=== PATIENT | female | born 1955 | race Caucasian/White ===

== ENCOUNTER → 2016-02-09 | Outpatient (CLI) | payer OTHER ==
[2016-02-09 13:24] LABS: Blood Urea Nitrogen 9 mg/dL (7-17); Non-African American GFR(MDRD) >60 (>60 ml/min/1.73 sqM)
--- NOTE | 2016-02-09 14:06 | CT ---
EXAMINATION TYPE: CT abdomen wo/w con DATE OF EXAM: 02/09/2016 1:54 PM COMPARISON: NONE HISTORY: Renal cyst CT DLP: 1107 mGycm Automated exposure control for dose reduction was used. TECHNIQUE: Helical acquisition of images was performed from the lung bases through the pelvis. CONTRAST: Performed with Oral Contrast and with IV Contrast, patient injected with 100 ml mL of Omnipaque 300. FINDINGS: LUNG BASES: No significant abnormality is appreciated. LIVER/GB: Previous gallbladder surgery noted. Liver has a normal appearance.. PANCREAS: No significant abnormality is seen. SPLEEN: No significant abnormality is seen. ADRENALS: No significant abnormality is seen. KIDNEYS: Renal cortical tissue is preserved bilaterally. Left kidney: There is mild prominence of the left collecting system. There is a 2 mm upper pole left renal calculus. Visualized renal pelvis and ureter demonstrate normal caliber. 4 mm hypodense lesion involving the left kidney mid renal cortex slightly anterior is too small to characterize but likely related to a tiny simple cyst. Right kidney: There is a 1 mm lower pole right renal calculus. No hydronephrosis. There is a hypodens e lesion involving the posterior mid to upper pole cortex of the right kidney. Measures 8 Hounsfield units. Findings compatible with simple cyst. OSSEOUS STRUCTURES: No significant abnormality is seen. BOWEL: No significant abnormality is seen. IMPRESSION: BILATERAL NEPHROLITHIASIS WITH MILD PROMINENCE OF THE LEFT COLLECTING SYSTEM COMPATIBLE WITH MILD PEL VOCALIECTASIS VERSUS EXTRARENAL PELVIS. SIMPLE CYST RIGHT KIDNEY MEASURING 8 HOUNSFIELD UNITS AND 1.2 CM.
== END | disposition home or self-care (01) ==
LOC: RADCTMAIN 12:44
PROVIDERS: ATTEND Urology
DX: N28.1 Cyst of kidney, acquired (principal); N20.0 Calculus of kidney
CPT/HCPCS: 82565; 84520; 74170; 36415; Q9967

== ENCOUNTER 2018-03-30 13:46 | Observation (INO) | payer OTHER ==
[2018-03-30] MEDS ORDERED: SODIUM CHLORIDE 0.9% 1,000 ML IV ONE (14:37)
--- NOTE | 2018-03-30 14:37 | ED ---
General Adult HPI - General Chief complaint: Abdominal Pain Stated complaint: Abd Pain Time Seen by Provider: 03/30/18 13:50 Source: patient, EMS, RN notes reviewed Mode of arrival: EMS Limitations: no limitations - History of Present Illness Initial comments: This is a 62-year-old female who presents to the emergency department complaining of left flank pain. Patient was seen at [facility] first and they transferred the patient to our facility because of an infected kidney stone which is causing perinephric stranding and severe hydronephrosis. Patient states she still having left-sided pain but she is much more comfortable after she has received medication. Patient also received Rocephin done at the other facility. Patient states his pain is been ongoing for a couple days but the pain got extremely bad about 1:00 in the morning. Patient denies any fever chills. Patient denies any vomiting per patient denies any diarrhea. Patient's white count at the other facility was 23,000 - Related Data Allergies Allergy/AdvReac Type Severity Reaction Status Date / Time acetaminophen [From Lortab] Allergy Nausea Verified 03/30/18 14:18 codeine Allergy Nausea Verified 03/30/18 14:18 diclofenac [From Voltaren] Allergy Nausea Verified 03/30/18 14:18 hydrocodone [From Lortab] Allergy Nausea Verified 03/30/18 14:18 Penicillins Allergy Rash/Hives Verified 03/30/18 14:18 Review of Systems ROS Statement: Those systems with pertinent positive or pertinent negative responses have been documented in the HPI. ROS Other: All systems not noted in ROS Statement are negative. Past Medical History Past Medical History: Fibromyalgia, Thyroid Disorder Additional Past Medical History / Comment(s): IBS History of Any Multi-Drug Resistant Organisms: None Reported Past Surgical History: Bladder Surgery, Cholecystectomy, Hysterectomy, Orthopedic Surgery Additional Past Surgical History / Comment(s): bunionectomy, achilles tendon repair, oopherectomy, several ovarian cysts removed, bladder suspension Past Psychological History: Anxiety, Depression Smoking Status: Current every day smoker Past Alcohol Use History: None Reported Past Drug Use History: None Reported General Exam - General Exam Comments Initial Comments: GENERAL: Patient is well-developed and well-nourished. Patient is nontoxic and well- hydrated and is in distress. ENT: Neck is soft and supple. No significant lymphadenopathy is noted. Neck has full range of motion without eliciting any pain. EYES: The sclera were anicteric and conjunctiva were pink and moist. Extraocular movements were intact and pupils were equal round and reactive to light. Eyelids were unremarkable. PULMONARY: Unlabored respirations. Good breath sounds bilaterally. No audible rales rhonchi or wheezing was noted. CARDIOVASCULAR: There is a regular rate and rhythm without any murmurs gallops or rubs. ABDOMEN: Soft and nontender with normal bowel sounds. No palpable organomegaly was noted. There is no palpable pulsatile mass. SKIN: Skin is clear with no lesions or rashes and otherwise unremarkable. NEUROLOGIC: Patient is alert and oriented x3. Cranial nerves II through XII are grossly intact. Motor and sensory are also intact. Normal speech, volume and content. Symmetrical smile. MUSCULOSKELETAL: Normal extremities with adequate strength and full range of motion. LYMPHATICS: No significant lymphadenopathy is noted PSYCHIATRIC: Normal psychiatric evaluation. Limitations: no limitations Course Vital Signs 03/30/18 13:49 Temperature 98.8 F Pulse Rate 104 H Respiratory 20 Rate Blood Pressure 123/64 O2 Sat by Pulse 95 Oximetry Medical Decision Making - Medical Decision Making I spoke with Dr. Noe Liu agreed to admit the patient admitted the patient continued antibiotics and pain medication throughout the night. I wrote admitting orders. Disposition Clinical Impression: Hydronephrosis with renal and ureteral calculous obstruction Disposition: ADMITTED IP TO THIS HOSP Referrals: Beto Barnes DO [Primary Care Provider] - 1-2 days Time of Disposition: 14:37
[2018-03-30] MEDS ORDERED: ONDANSETRON 4 MG/2 ML VIAL IVP PRN (14:40)
[2018-03-30] MEDS ORDERED: HYDROmorphone 0.5 MG/0.5 ML SYRINGE IVP PRN (14:40)
[2018-03-30] MEDS ORDERED: HYDROcodone/APAP 5-325MG 1 EACH TAB PO PRN (18:43)
--- NOTE | 2018-03-30 18:48 | P.GSHP ---
History of Present Illness H&P Date: 03/30/18 The patient is a pleasant 62-year-old female who in the past 24 hours developed severe left flank pain and left lower quadrant pain and pelvic pressure. She presented emergency room at [facility] where a computed tomography scan of the abdomen was obtained identifying a 2 mm stone with left hydroureteronephrosis and perinephric stranding. She had an elevated white count 22,000. They do not have a urologist at [facility] and she was referred up to [facility]. She was seen by Dr. Anderson He reviewed the situation with me. We elected to admit her because of elevated white count. Her urine did not appear to be infected but we want to make sure given the marked elevation of her white count. It has come down to 13,800 here today. She is still having pressure and pain. She does have a history of the stone 20 years ago. She has another tiny stone in her left upper pole. He has not had a lot of urinary tract infections. She denies fever or chills. She does have the pelvic and: Pressure. - Constitutional Constitutional: Reports chronic pain - Genitourinary (Female) Genitourinary: Reports as per HPI Past Medical History Past Medical History: Fibromyalgia, Thyroid Disorder Additional Past Medical History / Comment(s): IBS History of Any Multi-Drug Resistant Organisms: None Reported Past Surgical History: Bladder Surgery, Cholecystectomy, Hysterectomy, Orthopedic Surgery Additional Past Surgical History / Comment(s): bunionectomy, achilles tendon repair, oopherectomy, several ovarian cysts removed, bladder suspension Past Psychological History: Anxiety, Depression Smoking Status: Current some day smoker Past Alcohol Use History: None Reported Past Drug Use History: None Reported - Past Family History Father Family Medical History: Coronary Artery Disease (CAD), Hyperlipidemia Mother Family Medical History: Congestive Heart Failure (CHF), Dementia, Hyperlipidemia , Hypertension, Osteoarthritis (OA) Medications and Allergies Home Medications Medication Instructions Recorded Confirmed Type Albuterol Inhaler [Ventolin Hfa 1 - 2 puff INHALATION RT-Q6H PRN 03/30/18 History Inhaler] Albuterol Nebulized [Ventolin 2.5 mg INHALATION RT-QID PRN 03/30/18 03/30/18 History Nebulized] Aspirin EC [Ecotrin Low Dose] 81 mg PO DAILY 03/30/18 03/30/18 History Beclomethasone Dipropionate [Qvar 1 puff INHALATION RT-BID 03/30/18 03/30/18 History 40 mcg Redihaler] Calcium Carbonate/Vitamin D3 1 tab PO BID 03/30/18 03/30/18 History [Calcium 500-Vit D3 200 Tablet] Cyclobenzaprine [Flexeril] 10 mg PO HS 03/30/18 03/30/18 History Ergocalciferol (Vitamin D2) 50,000 unit PO FR 03/30/18 03/30/18 History [Vitamin D2] Fluticasone Nasal Stella [Flonase 1 spr EA NOSTRIL BID PRN 03/30/18 03/30/18 History Nasal Stella] Gabapentin [Neurontin] 200 mg PO TID 03/30/18 03/30/18 History Levothyroxine Sodium [Synthroid] 75 mcg PO DAILY 03/30/18 03/30/18 History Meclizine [Antivert] 25 mg PO DAILY PRN 03/30/18 03/30/18 History Multivitamins, Thera [Multivitamin 1 tab PO DAILY 03/30/18 03/30/18 History (formulary)] Nitroglycerin Sl Tabs [Nitrostat] 0.4 mg SUBLINGUAL Q5M PRN 03/30/18 03/30/18 History Oxybutynin Chloride [Oxybutynin 10 mg PO DAILY 03/30/18 03/30/18 History Chloride ER] Pantoprazole Sodium [Protonix] 40 mg PO DAILY PRN 03/30/18 03/30/18 History Polyethylene Glycol 3350 [Miralax] 17 gm PO DAILY PRN 03/30/18 03/30/18 History Propranolol HCl 80 mg PO DAILY PRN 03/30/18 03/30/18 History Simvastatin [Zocor] 20 mg PO HS 03/30/18 03/30/18 History Venlafaxine HCl [Effexor XR] 75 mg PO DAILY 03/30/18 03/30/18 History Venlafaxine HCl [Effexor XR] 150 mg PO DAILY 03/30/18 03/30/18 History amLODIPine [Norvasc] 10 mg PO HS 03/30/18 03/30/18 History buPROPion [Wellbutrin] 75 mg PO DAILY@1700 03/30/18 03/30/18 History hydrOXYzine HCL [Atarax] 25 mg PO TID PRN 03/30/18 03/30/18 History Allergies Allergy/AdvReac Type Severity Reaction Status Date / Time acetaminophen [From Lortab] Allergy Nausea Verified 03/30/18 14:18 codeine Allergy Nausea Verified 03/30/18 14:18 diclofenac [From Voltaren] Allergy Nausea Verified 03/30/18 14:18 hydrocodone [From Lortab] Allergy Nausea Verified 03/30/18 14:18 Penicillins Allergy Rash/Hives Verified 03/30/18 14:18 Surgical - Exam Vital Signs Temp Pulse Resp BP Pulse Ox 98.8 F 104 H 20 123/64 95 03/30/18 13:49 03/30/18 13:49 03/30/18 13:49 03/30/18 13:49 03/30/18 13:49 - General well developed, well nourished, moderate distress - Eyes PERRL - ENT no hearing loss - Neck trachea midline - Respiratory normal expansion, normal respiratory effort - Cardiovascular Rhythm: regular - Abdomen Abdomen: soft, non tender - Integumentary no growths - Neurologic normal coordination, normal sensation - Musculoskeletal normal gait, normal posture - Psychiatric oriented to time, oriented to person, oriented to place, speech is normal, memory intact Results - Imaging CT scan - abdomen: report reviewed, image reviewed CT scan - pelvis: report reviewed, image reviewed Assessment and Plan Assessment: Impression: Left ureteral calculus with colic. Markedly elevated white blood cell count rule out urine infection. Multiple medical illnesses Recommendations: She is admitted for observation IV fluids Flomax and parental pain medication. Hopefully she will pass the stone overnight. Pending on her vital signs and how she does as to further recommendations. This is been discussed with the patient.
[2018-03-30] MEDS ORDERED: ALBUTEROL NEBULIZED 2.5 MG/3 ML INHALATION PRN (19:24)
[2018-03-30] MEDS ORDERED: PANTOPRAZOLE 40 MG TABLET PO PRN (19:24)
[2018-03-30] MEDS ORDERED: PROPRANOLOL 40 MG TAB PO PRN (19:24)
[2018-03-30] MEDS ORDERED: NITROGLYCERIN SL TABS 0.4 MG TAB SUBLINGUAL PRN (19:24)
[2018-03-30] MEDS ORDERED: POLYETHYLENE GLYCOL 3350 17 GM POWD.PACK PO PRN (19:24)
[2018-03-30] MEDS ORDERED: MECLIZINE 25 MG TAB PO PRN (19:24)
[2018-03-30] MEDS ORDERED: FLUTICASONE 50MCG/SPRAY NASAL 16GM EA NOSTRIL PRN (19:24)
[2018-03-30] MEDS ORDERED: hydrOXYzine HCL 25 MG TAB PO PRN (19:24)
[2018-03-30] MEDS ORDERED: ALBUTEROL INHALER 60 PUFF/8 GM INHALER INHALATION PRN (19:24)
[2018-03-30] MEDS: GABAPENTIN 100 MG CAP PO SCH (20:21)
[2018-03-30] MEDS: CALCIUM CARB-VIT D 500MG-200UN 1 EACH TAB PO SCH (20:21)
[2018-03-30] MEDS ORDERED: amLODIPine 10 MG TAB PO SCH (21:00)
[2018-03-30] MEDS ORDERED: ATORVASTATIN 10 MG TAB PO SCH (21:00)
[2018-03-30] MEDS ORDERED: CYCLOBENZAPRINE 10 MG TAB PO SCH (21:00)
[2018-03-30 21:16] VITALS: RESP 16
[2018-03-30] MEDS: FLUTICASONE 44 MCG INHALER INHALATION SCH (23:14)
[2018-03-31 04:51] VITALS: BP 102/63; PULSE 85; TEMP 97.5
[2018-03-31] MEDS ORDERED: LEVOTHYROXINE 75 MCG TAB PO SCH (06:30)
[2018-03-31] MEDS: FLUTICASONE 44 MCG INHALER INHALATION SCH (07:27)
[2018-03-31] MEDS: CALCIUM CARB-VIT D 500MG-200UN 1 EACH TAB PO SCH (08:18)
[2018-03-31] MEDS: GABAPENTIN 100 MG CAP PO SCH (08:18)
[2018-03-31] MEDS ORDERED: ASPIRIN 81 MG PO SCH (09:00)
[2018-03-31] MEDS ORDERED: OXYBUTYNIN 10 MG TAB.ER.24 PO SCH (09:00)
[2018-03-31] MEDS ORDERED: VENLAFAXINE HCL ER 150 MG CAP PO SCH (09:00)
[2018-03-31] MEDS ORDERED: VENLAFAXINE HCL ER 75 MG CAP PO SCH (09:00)
[2018-03-31] MEDS ORDERED: MULTIVITAMINS, THERA 1 EACH TAB PO SCH (12:00)
--- NOTE | 2018-03-31 12:03 | P.DS ---
Providers Date of admission: 03/30/18 14:38 Attending physician: Wilmer Block Primary care physician: [facility] Course: The patient is 62. She presented to the [facility] emergency room yesterday with left-sided flank pain due to a 2 mm ureterovesical junction. She had hydronephrosis. Her white count was 23,000. She was transferred to [facility]. I elected to place her in the hospital because of elevated white count. Her white count came down to 13,000. Urine was not infected. Epidural remained afebrile. She has had no pain since last night. She is ready to be discharged home. She'll follow-up in my office in one week. She'll follow-up with her primary care doctor. She will resume her home medications. If she has problems she'll contact us. Her condition is good. Patient Condition at Discharge: Good Plan - Discharge Summary New Discharge Prescriptions: No Action Levothyroxine Sodium [Synthroid] 75 mcg PO DAILY Beclomethasone Dipropionate [Qvar 40 mcg Redihaler] 1 puff INHALATION RT-BID hydrOXYzine HCL [Atarax] 25 mg PO TID PRN PRN Reason: Itching Gabapentin [Neurontin] 200 mg PO TID Meclizine [Antivert] 25 mg PO DAILY PRN PRN Reason: DIZZINESS Calcium Carbonate/Vitamin D3 [Calcium 500-Vit D3 200 Tablet] 1 tab PO BID Albuterol Inhaler [Ventolin Hfa Inhaler] 1 - 2 puff INHALATION RT-Q6H PRN PRN Reason: Shortness Of Breath buPROPion [Wellbutrin] 75 mg PO DAILY@1700 Oxybutynin Chloride [Oxybutynin Chloride ER] 10 mg PO DAILY Cyclobenzaprine [Flexeril] 10 mg PO HS Venlafaxine HCl [Effexor XR] 75 mg PO DAILY Venlafaxine HCl [Effexor XR] 150 mg PO DAILY Pantoprazole Sodium [Protonix] 40 mg PO DAILY PRN PRN Reason: Heartburn Polyethylene Glycol 3350 [Miralax] 17 gm PO DAILY PRN PRN Reason: Constipation Multivitamins, Thera [Multivitamin (formulary)] 1 tab PO DAILY Fluticasone Nasal Bard [Flonase Nasal Bard] 1 spr EA NOSTRIL BID PRN PRN Reason: Allergy Symptoms Ergocalciferol (Vitamin D2) [Vitamin D2] 50,000 unit PO FR Simvastatin [Zocor] 20 mg PO HS Nitroglycerin Sl Tabs [Nitrostat] 0.4 mg SUBLINGUAL Q5M PRN PRN Reason: Chest Pain amLODIPine [Norvasc] 10 mg PO HS Propranolol HCl 80 mg PO DAILY PRN PRN Reason: Migraine Headache Aspirin EC [Ecotrin Low Dose] 81 mg PO DAILY Albuterol Nebulized [Ventolin Nebulized] 2.5 mg INHALATION RT-QID PRN PRN Reason: Shortness Of Breath Discharge Medication List Albuterol Inhaler [Ventolin Hfa Inhaler] 1 - 2 puff INHALATION RT-Q6H PRN [History] Albuterol Nebulized [Ventolin Nebulized] 2.5 mg INHALATION RT-QID PRN 03/30/18 [ History] Aspirin EC [Ecotrin Low Dose] 81 mg PO DAILY 03/30/18 [History] Beclomethasone Dipropionate [Qvar 40 mcg Redihaler] 1 puff INHALATION RT-BID [History] Calcium Carbonate/Vitamin D3 [Calcium 500-Vit D3 200 Tablet] 1 tab PO BID [History] Cyclobenzaprine [Flexeril] 10 mg PO HS 03/30/18 [History] Ergocalciferol (Vitamin D2) [Vitamin D2] 50,000 unit PO FR 03/30/18 [History] Fluticasone Nasal Bard [Flonase Nasal Bard] 1 spr EA NOSTRIL BID PRN 03/30/18 [History] Gabapentin [Neurontin] 200 mg PO TID 03/30/18 [History] Levothyroxine Sodium [Synthroid] 75 mcg PO DAILY 03/30/18 [History] Meclizine [Antivert] 25 mg PO DAILY PRN 03/30/18 [History] Multivitamins, Thera [Multivitamin (formulary)] 1 tab PO DAILY 03/30/18 [History ] Nitroglycerin Sl Tabs [Nitrostat] 0.4 mg SUBLINGUAL Q5M PRN 03/30/18 [History] Oxybutynin Chloride [Oxybutynin Chloride ER] 10 mg PO DAILY 03/30/18 [History] Pantoprazole Sodium [Protonix] 40 mg PO DAILY PRN 03/30/18 [History] Polyethylene Glycol 3350 [Miralax] 17 gm PO DAILY PRN 03/30/18 [History] Propranolol HCl 80 mg PO DAILY PRN 03/30/18 [History] Simvastatin [Zocor] 20 mg PO HS 03/30/18 [History] Venlafaxine HCl [Effexor XR] 75 mg PO DAILY 03/30/18 [History] Venlafaxine HCl [Effexor XR] 150 mg PO DAILY 03/30/18 [History] amLODIPine [Norvasc] 10 mg PO HS 03/30/18 [History] buPROPion [Wellbutrin] 75 mg PO DAILY@1700 03/30/18 [History] hydrOXYzine HCL [Atarax] 25 mg PO TID PRN 03/30/18 [History] Follow up Appointment(s)/Referral(s): Beto Barnes DO [Primary Care Provider] - 1-2 days () Wilmer Block MD [STAFF PHYSICIAN] - 1 Week Patient Instructions/Handouts: Kidney Stones (DC), Hydronephrosis (DC) Activity/Diet/Wound Care/Special Instructions: Follow up with Dr. Block in 1-3 days after discharge. regular diet activity limited until seen by Dr. Lawton Disposition: HOME SELF-CARE
[2018-03-31] MEDS ORDERED: buPROPion 75 MG TAB PO SCH (17:00)
[2018-03-31] MEDS ORDERED: TAMSULOSIN 0.4 MG CAP.ER.24H PO SCH (18:30)
[2018-04-05] MEDS ORDERED: ERGOCALCIFEROL 50,000 UNIT CAP PO SCH (12:00)
== END 2018-03-31 13:48 | disposition home or self-care (01) ==
LOC: EC 13:46 → 3NMEDONC 14:38 → INTOOBSV 14:38 → UNDODISIN 03-31 13:48
PROVIDERS: ADMIT Urology; ATTEND Urology
DX: N13.2 Hydronephrosis with renal and ureteral calculous obstruction (principal); D72.829 Elevated white blood cell count, unspecified; M79.7 Fibromyalgia; E07.9 Disorder of thyroid, unspecified; K58.9 Irritable bowel syndrome, unspecified; F32.9 Major depressive disorder, single episode, unspecified; F41.9 Anxiety disorder, unspecified; F17.200 Nicotine dependence, unspecified, uncomplicated; Z79.82 Long term (current) use of aspirin; Z79.51 Long term (current) use of inhaled steroids; Z79.890 Hormone replacement therapy; Z79.899 Other long term (current) drug therapy; Z90.710 Acquired absence of both cervix and uterus; Z90.49 Acquired absence of other specified parts of digestive tract; Z90.721 Acquired absence of ovaries, unilateral; Z88.0 Allergy status to penicillin; Z88.5 Allergy status to narcotic agent; Z88.6 Allergy status to analgesic agent; Z88.8 Allergy status to other drugs, medicaments and biological substances; Z83.49 Family history of other endocrine, nutritional and metabolic diseases; Z82.49 Family history of ischemic heart disease and other diseases of the circulatory system; Z81.8 Family history of other mental and behavioral disorders; Z82.61 Family history of arthritis
CPT/HCPCS: 96361 ×2; 96365; 96375; 99285; 94640; G0378 ×2; J0696; J1170; 99284